=== PATIENT | female | born 1975 | race Caucasian/White ===

== ENCOUNTER 2016-09-29 12:33 | Emergency (ER) | payer BC, OTHER ==
[2016-09-29] MEDS ORDERED: Acetaminophen/oxyCODONE 325-5 MG Tab PO ONE ×2 (13:07→14:12)
--- NOTE | 2016-09-29 13:22 | EDM.PDOC ---
ED HPI GENERAL MEDICAL PROBLEM - General Chief Complaint: Back Pain or Injury Stated Complaint: HURT HER BACK Time Seen by Provider: 09/29/16 13:07 Source of Information: Reports: Patient History Limitations: Reports: No Limitations - History of Present Illness INITIAL COMMENTS - FREE TEXT/NARRATIVE: PT STATES JUST [employer]OCKING INSPECT[employer] SHE ACCIDENTALLY FELL BACKWARD WHILE TRYING TO HELP SOMEONE STAND UP. H/O BACK SURGERY, CHRONIC BACK PAIN, RENAL INSUFF, AND LIVER BIOPSY ONE WEEK AGO. LANDED ON BUTTOCKS. DENIES LOC, SADDLE ANESTHESIA, BOWEL OR URINARY INCONT, OR PAIN RADIATION. Onset: Today Duration: Hour(s): Location: Reports: Back Quality: Reports: Ache Severity: Moderate Improves with: Reports: None Worsens with: Reports: Movement Context: Reports: Other (FALL) Associated Symptoms: Reports: No Other Symptoms Lower Posterior Back Pain Score (Numeric/FACES): 10 - Related Data Allergies Allergy/AdvReac Type Severity Reaction Status Date / Time celecoxib [From Celebrex] Allergy Hives Verified 09/29/16 12:51 Home Meds: Home Meds Estradiol [Estrace] 1.5 mg PO DAILY 12/11/13 [History] Cholecalciferol (Vitamin D3) [Vitamin D3] 1,000 units PO DAILY 05/07/14 [History ] Ciprofloxacin HCl 500 mg PO BID 05/07/14 [History] Multivitamin [Multi-Vitamin Daily] 1 tab PO DAILY 05/07/14 [History] Levothyroxine [Synthroid] 50 mcg PO ACBREAKFAST #30 tablet 04/15/16 [Rx] Lisinopril 5 mg PO DAILY 04/15/16 [History] Metoprolol Succinate [Toprol Xl] 100 mg PO DAILY 04/15/16 [History] ALPRAZolam [Xanax] 0.5 mg PO BEDTIME 09/29/16 [History] Bumetanide 1 mg PO DAILY 09/29/16 [History] Cyanocobalamin (Vitamin B12) [Vitamin B12] 1 tab PO DAILY 09/29/16 [History] FLUoxetine [PROzac] 20 mg PO DAILY 09/29/16 [History] Fenofibrate 1 tab PO DAILY 09/29/16 [History] Metolazone 2.5 mg PO DAILY 09/29/16 [History] metroNIDAZOLE [Flagyl] 500 mg PO TID 09/29/16 [History] Past Medical History HEENT History: Reports: Impaired Vision Cardiovascular History: Reports: Hypertension Gastrointestinal History: Reports: Chronic Diarrhea Genitourinary History: Reports: UTI, 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 History: Reports: Musculoskeletal History: Reports: Fracture Psychiatric History: Reports: Anxiety, Depression Endocrine/Metabolic History: Reports: Hypothyroidism - Infectious Disease History Infectious Disease History: Reports: Chicken Pox - Past Surgical History Neurological Surgical History: Reports: Lumbar Spine Musculoskeletal Surgical History: Reports: Arthroscopic Knee Social & Family History - Tobacco Use Smoking Status *Q: Never Smoker Second Hand Smoke Exposure: Yes - Caffeine Use Caffeine Use: Reports: Soda - Alcohol Use Days Per Week of Alcohol Use: 3 Number of Drinks Per Day: 3 Total Drinks Per Week: 9 - Recreational Drug Use Recreational Drug Use: No Drug Use in Last 12 Months: Yes Recreational Drug Type: Reports: Other (see below) Recreational Drug Use Frequency: Daily - Living Situation & Occupation Living situation: Reports: Other Occupation: Employed ED ROS GENERAL - Review of Systems Review Of Systems: ROS reveals no pertinent complaints other than HPI. Constitutional: Reports: No Symptoms HEENT: Reports: No Symptoms Respiratory: Reports: No Symptoms Cardiovascular: Reports: No Symptoms Endocrine: Reports: No Symptoms GI/Abdominal: Reports: No Symptoms : Reports: No Symptoms Musculoskeletal: Reports: Back Pain Skin: Reports: No Symptoms Neurological: Reports: No Symptoms Psychiatric: Reports: No Symptoms Hematologic/Lymphatic: Reports: No Symptoms Immunologic: Reports: No Symptoms ED EXAM,LOWER BACK PAIN/INJURY - Physical Exam Exam: See Below Exam Limited By: No Limitations General Appearance: Alert, WD/WN, Mild Distress Throat/Mouth: Normal Inspection, Normal Oropharynx, No Airway Compromise Head: Atraumatic, Normocephalic Neck: Normal Inspection, Supple, Non-Tender, Full Range of Motion Respiratory/Chest: No Respiratory Distress GI/Abdominal: Normal Bowel Sounds, Soft, Non-Tender Back Exam: Paraspinal Tenderness. No: CVA Tenderness (L), CVA Tenderness (R), Vertebral Tenderness Extremities: Normal Inspection, Normal Range of Motion, Non-Tender, No Pedal Edema Neurological: Alert, Normal Mood/Affect, Normal Dorsiflexion, Normal Plantar Flexion, Oriented x 3 Psychiatric: Normal Affect, Normal Mood Skin Exam: Warm, Dry, Intact, Normal Color, No Rash Lymphatic: No Adenopathy Course - Vital Signs Last Recorded V/S: Last Vital Signs Temp 99.3 F 09/29/16 12:54 Pulse 100 09/29/16 12:54 Resp 20 09/29/16 12:54 BP 121/72 09/29/16 12:54 Pulse Ox 93 L 09/29/16 12:54 - Orders/Labs/Meds Orders: Active Orders 24 hr Category Date Time Status Lumbar Spine 2 or 3V [CR] Stat Exams 09/29/16 12:51 Ordered Sacrum Coccyx Min 2V [CR] Stat Exams 09/29/16 12:51 Ordered Acetaminophen/oxyCODONE [Percocet 325-5 MG] Med 09/29/16 13:07 Once 2 tab PO ONETIME ONE - Radiology Interpretation Free Text/Narrative:: LS SPINE XRAY SHOWS L1 COMPRESSION FX BUT NOT DEFINITIVE FOR ACUTE PROCESS. NO COMPARISON FILMS AVAILABLE - Re-Assessments/Exams Free Text/Narrative Re-Assessment/Exam: 09/29/16 14:14 PT AFEBRILE, NONTOXIC APPEARING, PAIN CONTROLLED, AT BEDSIDE, HAS APPT WITH PCP AT 1000 TOMORROW. WILL ADVISE ORTHO F/U Departure - Departure Time of Disposition: 14:15 Disposition: Home, Self-Care 01 Condition: Good Clinical Impression: Lumbar compression fracture Qualifiers: Encounter type: initial encounter Fracture type: closed Qualified Code(s): S32.000A - Wedge compression fracture of unspecified lumbar vertebra, initial encounter for closed fracture Back pain Qualifiers: Back pain location: low back pain Chronicity: acute Back pain laterality: unspecified Sciatica presence: without sciatica Qualified Code(s): M54.5 - Low back pain - Discharge Information Instructions: Back Injury Prevention, [id number], Back Pain, Adult, Easy-to- Read, Pain Medicine Instructions, [id number], Lumbar Fracture Forms: ED Department Discharge Additional Instructions: FOLLOW UP WITH [facility] SCHEDULED TOMORROW. REFERRAL FOR ORTHOPEDICS SUGGESTED. RETURN TO ER IF SYMPTOMS WORSEN - My Orders Last 24 Hours: My Active Orders 09/29/16 12:51 Lumbar Spine 2 or 3V [CR] Stat Sacrum Coccyx Min 2V [CR] Stat 09/29/16 13:07 Acetaminophen/oxyCODONE [Percocet 325-5 MG] 2 tab PO ONETIME ONE - Assessment/Plan Last 24 Hours: My Active Orders 09/29/16 12:51 Lumbar Spine 2 or 3V [CR] Stat Sacrum Coccyx Min 2V [CR] Stat 09/29/16 13:07 Acetaminophen/oxyCODONE [Percocet 325-5 MG] 2 tab PO ONETIME ONE Assessment:: BACK PAIN Plan: F/U WITH PCP / ORTHO
[2016-09-29] MEDS ORDERED: Diazepam 5 MG Tab PO ONE ×2 (13:41→14:12)
[2016-09-29] MEDS ORDERED: Diazepam 5 MG Tab ONE (13:43)
[2016-09-29 14:06] VITALS: BP 131/74
== END 2016-09-29 14:30 | disposition home or self-care (01) ==
LOC: KA.ED 12:33
DX: S32.010A Wedge compression fracture of first lumbar vertebra, initial encounter for closed fracture (principal); I10 Essential (primary) hypertension; E03.9 Hypothyroidism, unspecified; F41.9 Anxiety disorder, unspecified; F32.9 Major depressive disorder, single episode, unspecified; Z87.440 Personal history of urinary (tract) infections; Z98.890 Other specified postprocedural states; Z88.8 Allergy status to other drugs, medicaments and biological substances; Z79.899 Other long term (current) drug therapy; W19.XXXA Unspecified fall, initial encounter
CPT/HCPCS: 72100; 72220; 99283; A9270